=== PATIENT | male | born 1960 | race African-American/Black ===

== ENCOUNTER 2017-04-05 13:43 | Emergency (ER) | payer MEDICAID ==
[~2017-04-05] VITALS: Ht 188 cm; Wt 66.2 kg
[~2017-04-05 13:43] MED LIST: GLIP-115 PO; OMEP20CA74 PO; ONDA8TAB6 PO; PERCOT PO; PRO10T GT; PRO10T PO; TRAM50TA2 PO
[2017-04-05 13:53] VITALS: BP 149/92
== END 2017-04-05 16:07 | disposition home or self-care (01) ==
LOC: ER 13:43 → EDBD 13:43 → ER 16:07
DX: M79.662 Pain in left lower leg (principal); J45.909 Unspecified asthma, uncomplicated; Z79.899 Other long term (current) drug therapy
CPT/HCPCS: 93971

== ENCOUNTER 2017-04-06 06:16 | Inpatient (IN) | payer MEDICAID ==
[2017-04-06] VITALS (30 sets, daily range): BP systolic 113–143; BP diastolic 72–92
[~2017-04-06] VITALS: Ht 182.9 cm; Wt 67.1 kg
[2017-04-06 06:36] LABS: Allen Test Modified; Base Excess 6.8 mmol/L (-2.0-2.0); Blood 02Sat 95.5 % (96-100); Blood COHb 1.6 % (0.5-1.5); Blood MetHb 0.1 % (0.0-1.5); HHb 4.4 % (0.0-5.0); MODE NASAL CANNULA; O2Hb 93.9 % (94.0-97.0); PCO2 37.6 mmHg (35.0-45.0); PCO2(T) 37.6 mmHg (35.0-45.0); PO2 79.6 mmHg (80.0-100.0); PO2(T) 79.6 mmHg (80.0-100.0); Sample Type Arterial
[2017-04-06] MEDS ORDERED: SODIUM CHLORIDE 0.9% 1,000 ML IV ONE (06:57)
[2017-04-06] MEDS ORDERED: MORPHINE SULF INJ 2 MG/ML SYRINGE 1ML IV ONE (07:00)
[2017-04-06] MEDS ORDERED: ONDANSETRON HCL 4 MG/2 ML VIAL IV ONE (07:00)
[2017-04-06 07:16] LABS: Urine Blood 2+ /uL (Negative); Urine Color Yellow (Yellow); Urine Glucose 3+ mg/dL (Normal); Urine Ketone Negative (Negative); Urine Nitrite Negative (Negative); Urine RBC 1 /hpf (0 - 3); Urine Squamous Epithelial Cell FEW /hpf (<5); Urine Urobilinogen >12.0 mg/dL (Negative)
[2017-04-06 07:38] LABS: Urine Bilirubin Negative (Negative)
[2017-04-06 07:53] LABS: Hematocrit 32.3 % (41.0-53.0); Hemoglobin 10.9 g/dL (13.5-17.5); Mean Corpuscular Hemoglobin 30.1 pg (28.0-32.0); Mean Corpuscular Hgb Conc. 33.8 g/dL (32.0-36.0); Mean Platelet Volume 8.6 fL (6.9-10.8); Platelet Count (auto) 165 10^3/uL (140-450); White Blood Cell 16.6 10^3/uL (4.4-10.8)
[2017-04-06 07:56] LABS: Metamyelocytes % 0; Myelocytes % 0; Promyelocytes % 0; Reactive Lymphocytes 0
[2017-04-06 08:09] LABS: BUN/Creatinine Ratio 33.7; Bilirubin, Total 3.5 mg/dL (0.2-1.0); Calcium 9.2 mg/dL (8.5-10.1); Magnesium 2.3 mg/dL (1.6-2.6); Potassium 4.3 mmol/L (3.5-5.1); Total Protein 7.1 g/dL (6.4-8.2)
[2017-04-06 08:36] LABS: Platelet Estimate Adequate
[2017-04-06] MEDS ORDERED: HEPARIN SODIUM (PORCINE) 5000 UNITS/ML 1ML VIAL IV ONE (11:15)
[2017-04-06] MEDS ORDERED: LACTULOSE 20Gm/30ML SOLN PO PRN (11:15)
[2017-04-06] MEDS ORDERED: ALBUTEROL SULF 2.5 MG/0.5ML(0.5%) NEB SOLN NEB PRN (11:15)
[2017-04-06] MEDS ORDERED: NITROGLYCERIN 0.4 MG SL TAB SL PRN (11:15)
[2017-04-06] MEDS ORDERED: LORazepam 2MG/ML-1ML VIAL IV PRN (11:15)
[2017-04-06] MEDS ORDERED: TEMAZEPAM 15 MG CAP PO PRN (11:15)
[2017-04-06] MEDS ORDERED: DEXTROSE (50%) 50ML SYRG IV PRN (11:15)
[2017-04-06] MEDS ORDERED: MORPHINE SULF INJ 2 MG/ML SYRINGE 1ML IV PRN (11:15)
[2017-04-06] MEDS ORDERED: ACETAMINOPHEN 500 MG TAB PO PRN (11:15)
[2017-04-06] MEDS ORDERED: HEPARIN 1,000 UNITS/ml 1ML VIAL ONE (11:29)
[2017-04-06] MEDS ORDERED: HEPARIN SODIUM (PORCINE) 5000 UNITS/ML 1ML VIAL ONE (11:29)
[2017-04-06] MEDS: HEPARIN DRIP/D5W 100UNITS/ML 250 ML IV SCH (11:45)
[2017-04-06 11:46] LABS: Hematocrit 30.2 % (41.0-53.0); Hemoglobin 10.1 g/dL (13.5-17.5)
[2017-04-06] MEDS: SODIUM CHLORIDE 0.9% 1,000 ML IV SCH ×2 (11:46→19:05)
[2017-04-06 11:47] LABS: Amylase 19 U/L (25-115)
[2017-04-06 11:48] LABS: INR 1.12 (0.9-1.15); Partial Thromboplastin Time 26.6 sec (22.64-33.71); Prothrombin Time 12.2 sec (9.37-12.3)
[2017-04-06] MEDS: IPRATROPIUM BROM 0.5 MG/2.5ML INH SOL NEB SCH ×2 (12:00→18:33)
[2017-04-06] MEDS: ALBUTEROL SULF 2.5 MG/0.5ML(0.5%) NEB SOLN NEB SCH ×2 (12:00→18:33)
[2017-04-06] MEDS ORDERED: [UNRECOGNIZED DRUG - OTHER] IV SCH (12:00)
[2017-04-06] MEDS: PANTOPRAZOLE 40 MG/10 ML VIAL IV SCH (12:10)
[2017-04-06] MEDS: NITROGLYCERIN 0.2MG/HR TOPICAL PATCH TD SCH (12:11)
[2017-04-06] MEDS: LEVOFLOXACIN 500MG 100 ML IV SCH (12:14)
[2017-04-06] MEDS: ASPirin 81 mg TAB PO SCH (12:16)
[2017-04-06] MEDS: METOPROLOL TARTRATE 25 MG TAB PO SCH ×2 (12:17→22:29)
[2017-04-06] MEDS: InsuLIN REG 1unit/0.01ml Soln (100units/ml) SC SCH ×3 (12:26→20:22)
[2017-04-06] MEDS: ACCU-CHEK COMFORT CURVE STRIP VI SCH ×3 (12:26→20:22)
[2017-04-06 15:43] LABS: Hematocrit 28.3 % (41.0-53.0); Hemoglobin 9.4 g/dL (13.5-17.5)
[2017-04-06 18:18] LABS: INR 1.24 (0.9-1.15); Prothrombin Time 13.5 sec (9.37-12.3)
[2017-04-07] VITALS (66 sets, daily range): BP systolic 105–174; BP diastolic 56–101
[2017-04-07] MEDS: InsuLIN REG 1unit/0.01ml Soln (100units/ml) SC SCH ×6 (00:18→20:00)
[2017-04-07] MEDS: ACCU-CHEK COMFORT CURVE STRIP VI SCH ×6 (00:18→20:00)
[2017-04-07] MEDS: ALBUTEROL SULF 2.5 MG/0.5ML(0.5%) NEB SOLN NEB SCH ×4 (00:22→18:45)
[2017-04-07] MEDS: IPRATROPIUM BROM 0.5 MG/2.5ML INH SOL NEB SCH ×4 (00:22→18:45)
[2017-04-07] MEDS: PROMETHAZINE HCL 25 MG/ML 1ML IV PRN (00:49)
[2017-04-07] MEDS: MORPHINE SULF INJ 2 MG/ML SYRINGE 1ML IV PRN ×4 (00:49→23:51)
[2017-04-07 01:34] LABS: Hematocrit 26.7 % (41.0-53.0); Hemoglobin 9.1 g/dL (13.5-17.5)
[2017-04-07] MEDS: HYDROcodone-ACET 5/325MG TAB PO PRN ×2 (03:01→20:35)
[2017-04-07] MEDS: SODIUM CHLORIDE 0.9% 1,000 ML IV SCH ×4 (03:05→20:00)
[2017-04-07 04:43] LABS: Basophils # (auto) 0.1 uL; Basophils % (auto) 0.6 % (0.0-2.0); Eosinophils # (auto) 0 uL; Hemoglobin 8.9 g/dL (13.5-17.5); INR 1.18 (0.9-1.15); Lymphocytes # (auto) 0.9 uL; Lymphocytes % (auto) 5.7 % (10.0-50.0); Mean Corpuscular Hemoglobin 29.2 pg (28.0-32.0); Mean Corpuscular Hgb Conc. 33.1 g/dL (32.0-36.0); Mean Corpuscular Volume 88.1 fL (80.0-100.0); Mean Platelet Volume 9.5 fL (6.9-10.8); Monocytes # (auto) 0.2 uL; Monocytes % (auto) 1.5 % (0.0-12.0); Neutrophils % (auto) 92.2 % (37.0-80.0); Partial Thromboplastin Time 56.7 sec (22.64-33.71); Platelet Count (auto) 145 10^3/uL (140-450); Prothrombin Time 12.9 sec (9.37-12.3); Red Cell Distribution Width 14.5 % (11.8-14.3); White Blood Cell 16.3 10^3/uL (4.4-10.8)
[2017-04-07 05:07] LABS: Albumin 1.7 g/dL (3.4-5.0); BUN/Creatinine Ratio 37.5; Bilirubin, Total 4.2 mg/dL (0.2-1.0); Calcium 8.5 mg/dL (8.5-10.1); Potassium 4.2 mmol/L (3.5-5.1); Total Protein 6.1 g/dL (6.4-8.2)
[2017-04-07] MEDS: HEPARIN DRIP/D5W 100UNITS/ML 250 ML IV SCH (07:53)
[2017-04-07] MEDS ORDERED: MORPHINE SULF INJ 2 MG/ML SYRINGE 1ML IV ONE (08:45)
[2017-04-07 09:38] LABS: INR 1.17 (0.9-1.15); Partial Thromboplastin Time 47.4 sec (22.64-33.71); Prothrombin Time 12.8 sec (9.37-12.3)
[2017-04-07] MEDS: ASPirin 81 mg TAB PO SCH (10:00)
[2017-04-07] MEDS: METOPROLOL TARTRATE 25 MG TAB PO SCH ×2 (10:00→22:50)
[2017-04-07] MEDS: PANTOPRAZOLE 40 MG/10 ML VIAL IV SCH (10:04)
[2017-04-07] MEDS: LEVOFLOXACIN 500MG 100 ML IV SCH (10:04)
[2017-04-07] MEDS: NITROGLYCERIN 0.2MG/HR TOPICAL PATCH TD SCH (10:05)
[2017-04-07 17:55] LABS: INR 1.18 (0.9-1.15); Prothrombin Time 12.9 sec (9.37-12.3)
[2017-04-07] MEDS ORDERED: LORazepam 2MG/ML-1ML VIAL IV PRN (20:00)
[2017-04-08] VITALS: BP 137/89
[2017-04-08] MEDS: ALBUTEROL SULF 2.5 MG/0.5ML(0.5%) NEB SOLN NEB SCH ×4 (00:54→18:52)
[2017-04-08] MEDS: IPRATROPIUM BROM 0.5 MG/2.5ML INH SOL NEB SCH ×4 (00:54→18:52)
[2017-04-08] MEDS: ACCU-CHEK COMFORT CURVE STRIP VI SCH ×5 (01:20→21:54)
[2017-04-08] MEDS: InsuLIN REG 1unit/0.01ml Soln (100units/ml) SC SCH ×5 (01:20→21:53)
[2017-04-08] MEDS: HYDROcodone-ACET 5/325MG TAB PO PRN (02:54)
[2017-04-08 05:08] LABS: Basophils # (auto) 0.1 uL; Basophils % (auto) 1.2 % (0.0-2.0); Eosinophils # (auto) 0 uL; Eosinophils % (auto) 0.1 % (0.0-7.0); Hematocrit 25.2 % (41.0-53.0); Hemoglobin 8.5 g/dL (13.5-17.5); Lymphocytes # (auto) 0.7 uL; Lymphocytes % (auto) 6.8 % (10.0-50.0); Mean Corpuscular Hemoglobin 29.3 pg (28.0-32.0); Mean Corpuscular Hgb Conc. 33.7 g/dL (32.0-36.0); Mean Corpuscular Volume 87.1 fL (80.0-100.0); Mean Platelet Volume 9.6 fL (6.9-10.8); Monocytes # (auto) 0.1 uL; Monocytes % (auto) 1.1 % (0.0-12.0); Neutrophils # (auto) 9.2 uL; Neutrophils % (auto) 90.8 % (37.0-80.0); Platelet Count (auto) 157 10^3/uL (140-450); Red Cell Distribution Width 14.8 % (11.8-14.3); White Blood Cell 10.2 10^3/uL (4.4-10.8)
[2017-04-08] MEDS: MORPHINE SULF INJ 2 MG/ML SYRINGE 1ML IV PRN ×4 (05:23→21:54)
[2017-04-08 08:00] VITALS: BP 147/100
[2017-04-08 08:14] LABS: BUN/Creatinine Ratio 37.7; Calcium 8.4 mg/dL (8.5-10.1); Potassium 3.8 mmol/L (3.5-5.1)
[2017-04-08 08:48] LABS: INR 1.2 (0.9-1.15); Prothrombin Time 13.1 sec (9.37-12.3)
[2017-04-08 08:55] LABS: Partial Thromboplastin Time 94.8 sec (22.64-33.71)
[2017-04-08] MEDS: NITROGLYCERIN 0.2MG/HR TOPICAL PATCH TD SCH (10:00)
[2017-04-08] MEDS: PANTOPRAZOLE 40 MG/10 ML VIAL IV SCH (10:06)
[2017-04-08] MEDS: METOPROLOL TARTRATE 25 MG TAB PO SCH ×2 (10:06→21:53)
[2017-04-08] MEDS: ASPirin 81 mg TAB PO SCH (10:07)
[2017-04-08] MEDS: LEVOFLOXACIN 500MG 100 ML IV SCH (10:07)
[2017-04-08] MEDS: HEPARIN DRIP/D5W 100UNITS/ML 250 ML IV SCH ×2 (10:25→21:48)
[2017-04-08] MEDS ORDERED: DILT30TA24 PO (11:48)
[2017-04-08] MEDS ORDERED: MORP60TA25 PO (11:48)
[2017-04-08] MEDS ORDERED: METF-370 PO (11:48)
[2017-04-08] MEDS: Boost Glucose Control 8 Ounces PO SCH ×2 (11:53→17:05)
[2017-04-08] MEDS: SODIUM CHLORIDE 0.9% 1,000 ML IV SCH ×2 (11:53→20:00)
[2017-04-08 11:56] VITALS: BP 133/83
[2017-04-08] MEDS: PROMETHAZINE HCL 25 MG/ML 1ML IV PRN ×2 (13:20→20:06)
[2017-04-08] MEDS ORDERED: DEXTROSE (50%) 50ML SYRG IV PRN (13:45)
[2017-04-08 15:47] VITALS: BP 140/82
[2017-04-08] MEDS ORDERED: ACCU-CHEK COMFORT CURVE STRIP VI SCH (17:00)
[2017-04-08] MEDS ORDERED: InsuLIN REG 1unit/0.01ml Soln (100units/ml) SC SCH ×2 (17:00→22:00)
[2017-04-08 17:02] LABS: INR 1.13 (0.9-1.15); Partial Thromboplastin Time 54.2 sec (22.64-33.71); Prothrombin Time 12.3 sec (9.37-12.3)
[2017-04-08] MEDS: PRO-STAT 64 30ML PO SCH (17:06)
[2017-04-08 19:53] VITALS: BP 151/87
[2017-04-08 23:31] LABS: INR 1.14 (0.9-1.15); Prothrombin Time 12.4 sec (9.37-12.3)
[2017-04-09 00:01] VITALS: BP 121/73
[2017-04-09] MEDS: IPRATROPIUM BROM 0.5 MG/2.5ML INH SOL NEB SCH ×4 (00:19→19:49)
[2017-04-09] MEDS: ALBUTEROL SULF 2.5 MG/0.5ML(0.5%) NEB SOLN NEB SCH ×4 (00:19→19:49)
[2017-04-09] MEDS: PROMETHAZINE HCL 25 MG/ML 1ML IV PRN (02:21)
[2017-04-09] MEDS: MORPHINE SULF INJ 2 MG/ML SYRINGE 1ML IV PRN ×3 (04:27→21:20)
[2017-04-09 05:15] LABS: Hematocrit 26.3 % (41.0-53.0); Hemoglobin 8.9 g/dL (13.5-17.5)
[2017-04-09 05:29] LABS: INR 1.14 (0.9-1.15); Partial Thromboplastin Time 53.4 sec (22.64-33.71); Prothrombin Time 12.4 sec (9.37-12.3)
[2017-04-09 06:21] LABS: BUN/Creatinine Ratio 31.3; Calcium 8.5 mg/dL (8.5-10.1); Potassium 3.7 mmol/L (3.5-5.1)
[2017-04-09] MEDS: InsuLIN REG 1unit/0.01ml Soln (100units/ml) SC SCH ×4 (06:30→22:00)
[2017-04-09] MEDS: ACCU-CHEK COMFORT CURVE STRIP VI SCH ×4 (06:30→22:00)
[2017-04-09 08:00] VITALS: BP 150/87
[2017-04-09] MEDS: PRO-STAT 64 30ML PO SCH ×2 (08:00→18:00)
[2017-04-09] MEDS: Boost Glucose Control 8 Ounces PO SCH ×3 (08:00→18:00)
[2017-04-09] MEDS: PANTOPRAZOLE 40 MG/10 ML VIAL IV SCH (10:01)
[2017-04-09 10:08] VITALS: BP 121/53
[2017-04-09 12:00] VITALS: BP 155/90
[2017-04-09 15:59] VITALS: BP 161/79
[2017-04-09] MEDS: ASPirin 81 mg TAB PO SCH (16:30)
[2017-04-09] MEDS: METOPROLOL TARTRATE 25 MG TAB PO SCH ×2 (16:30→22:43)
[2017-04-09] MEDS: SODIUM CHLORIDE 0.9% 1,000 ML IV SCH (17:30)
[2017-04-09 20:00] VITALS: BP 119/67
[2017-04-09] MEDS: HEPARIN DRIP/D5W 100UNITS/ML 250 ML IV SCH (21:38)
[2017-04-10] VITALS: BP 119/67
[2017-04-10] MEDS: IPRATROPIUM BROM 0.5 MG/2.5ML INH SOL NEB SCH ×4 (00:58→18:56)
[2017-04-10] MEDS: ALBUTEROL SULF 2.5 MG/0.5ML(0.5%) NEB SOLN NEB SCH ×4 (00:58→18:56)
[2017-04-10 03:49] VITALS: BP 145/90
[2017-04-10 05:20] LABS: Basophils # (auto) 0 uL; Basophils % (auto) 0.3 % (0.0-2.0); Eosinophils # (auto) 0 uL; Eosinophils % (auto) 0.3 % (0.0-7.0); Hematocrit 28.3 % (41.0-53.0); Hemoglobin 9.6 g/dL (13.5-17.5); Lymphocytes # (auto) 0.6 uL; Lymphocytes % (auto) 6.9 % (10.0-50.0); Mean Corpuscular Hemoglobin 29.2 pg (28.0-32.0); Mean Corpuscular Hgb Conc. 33.8 g/dL (32.0-36.0); Mean Corpuscular Volume 86.5 fL (80.0-100.0); Mean Platelet Volume 9.5 fL (6.9-10.8); Monocytes # (auto) 0.2 uL; Monocytes % (auto) 2.1 % (0.0-12.0); Neutrophils # (auto) 7.4 uL; Neutrophils % (auto) 90.4 % (37.0-80.0); Nucleated Red Blood Cells % 0.1 %; Platelet Count (auto) 131 10^3/uL (140-450); Red Cell Distribution Width 14.9 % (11.8-14.3); White Blood Cell 8.2 10^3/uL (4.4-10.8)
[2017-04-10 05:31] LABS: INR 1.16 (0.9-1.15); Partial Thromboplastin Time 45.5 sec (22.64-33.71); Prothrombin Time 12.7 sec (9.37-12.3)
[2017-04-10] MEDS: SODIUM CHLORIDE 0.9% 1,000 ML IV SCH (05:39)
[2017-04-10] MEDS ORDERED: HEPARIN DRIP/D5W 100UNITS/ML 250 ML IV SCH (06:00)
[2017-04-10] MEDS: ACCU-CHEK COMFORT CURVE STRIP VI SCH ×4 (07:14→22:00)
[2017-04-10] MEDS: InsuLIN REG 1unit/0.01ml Soln (100units/ml) SC SCH ×4 (07:15→22:53)
[2017-04-10 08:00] VITALS: BP 133/86
[2017-04-10] MEDS: Boost Glucose Control 8 Ounces PO SCH ×3 (09:53→19:14)
[2017-04-10] MEDS: PANTOPRAZOLE 40 MG/10 ML VIAL IV SCH (10:00)
[2017-04-10] MEDS: HYDROcodone-ACET 5/325MG TAB PO PRN (10:03)
[2017-04-10] MEDS: ASPirin 81 mg TAB PO SCH (10:03)
[2017-04-10] MEDS: METOPROLOL TARTRATE 25 MG TAB PO SCH ×2 (10:06→21:33)
[2017-04-10 12:00] VITALS: BP 129/81
[2017-04-10] MEDS: PRO-STAT 64 30ML PO SCH ×2 (12:18→19:14)
[2017-04-10 16:00] VITALS: BP 111/65
[2017-04-10] MEDS: MORPHINE SULF INJ 2 MG/ML SYRINGE 1ML IV PRN ×2 (17:08→23:17)
[2017-04-10 20:00] VITALS: BP 128/76
[2017-04-10] MEDS: ATORVASTATIN 20 MG TAB PO SCH (21:33)
[2017-04-11] VITALS: BP 119/76
[2017-04-11] MEDS: IPRATROPIUM BROM 0.5 MG/2.5ML INH SOL NEB SCH ×4 (00:27→18:50)
[2017-04-11] MEDS: ALBUTEROL SULF 2.5 MG/0.5ML(0.5%) NEB SOLN NEB SCH ×4 (00:27→18:50)
[2017-04-11] MEDS: MORPHINE SULF INJ 2 MG/ML SYRINGE 1ML IV PRN (03:40)
[2017-04-11 04:00] VITALS: BP 100/51
[2017-04-11 05:10] LABS: Basophils # (auto) 0 uL; Basophils % (auto) 0.1 % (0.0-2.0); Eosinophils # (auto) 0.1 uL; Hematocrit 22.8 % (41.0-53.0); Hemoglobin 7.8 g/dL (13.5-17.5); Lymphocytes # (auto) 0.7 uL; Mean Corpuscular Hemoglobin 29.7 pg (28.0-32.0); Mean Corpuscular Hgb Conc. 34.2 g/dL (32.0-36.0); Mean Corpuscular Volume 86.9 fL (80.0-100.0); Mean Platelet Volume 9.5 fL (6.9-10.8); Monocytes # (auto) 0.5 uL; Monocytes % (auto) 8.7 % (0.0-12.0); Neutrophils # (auto) 4.9 uL; Neutrophils % (auto) 79.2 % (37.0-80.0); Nucleated Red Blood Cells % 0.2 %; Platelet Count (auto) 88 10^3/uL (140-450); White Blood Cell 6.2 10^3/uL (4.4-10.8)
[2017-04-11 05:22] LABS: INR 1.22 (0.9-1.15); Partial Thromboplastin Time 30.9 sec (22.64-33.71); Prothrombin Time 13.3 sec (9.37-12.3)
[2017-04-11] MEDS: ACCU-CHEK COMFORT CURVE STRIP VI SCH ×4 (06:29→22:09)
[2017-04-11] MEDS: InsuLIN REG 1unit/0.01ml Soln (100units/ml) SC SCH ×4 (06:29→22:10)
[2017-04-11 08:00] VITALS: BP 122/72
[2017-04-11] MEDS: PRO-STAT 64 30ML PO SCH ×2 (10:07→19:21)
[2017-04-11] MEDS: Boost Glucose Control 8 Ounces PO SCH ×3 (10:07→19:20)
[2017-04-11] MEDS: ASPirin 81 mg TAB PO SCH (10:21)
[2017-04-11] MEDS: PANTOPRAZOLE 40 MG/10 ML VIAL IV SCH (10:21)
[2017-04-11] MEDS: METOPROLOL TARTRATE 25 MG TAB PO SCH ×2 (10:21→22:19)
[2017-04-11 11:59] VITALS: BP 123/78
[2017-04-11 15:44] VITALS: BP 101/58
[2017-04-11 19:52] VITALS: BP 146/90
[2017-04-11] MEDS: ATORVASTATIN 20 MG TAB PO SCH (22:15)
[2017-04-11] MEDS: HYDROcodone-ACET 5/325MG TAB PO PRN (23:50)
[2017-04-12] VITALS: BP 125/75
[2017-04-12 04:09] VITALS: BP 127/74
[2017-04-12] MEDS: IPRATROPIUM BROM 0.5 MG/2.5ML INH SOL NEB SCH ×5 (06:04→18:43)
[2017-04-12] MEDS: ALBUTEROL SULF 2.5 MG/0.5ML(0.5%) NEB SOLN NEB SCH ×5 (06:04→18:43)
[2017-04-12] MEDS: InsuLIN REG 1unit/0.01ml Soln (100units/ml) SC SCH ×4 (07:00→22:51)
[2017-04-12] MEDS: ACCU-CHEK COMFORT CURVE STRIP VI SCH ×4 (07:01→22:50)
[2017-04-12] MEDS: MORPHINE SULF INJ 2 MG/ML SYRINGE 1ML IV PRN (07:06)
[2017-04-12 08:00] VITALS: BP 124/81
[2017-04-12] MEDS: PRO-STAT 64 30ML PO SCH ×2 (08:00→17:32)
[2017-04-12] MEDS: Boost Glucose Control 8 Ounces PO SCH ×3 (08:00→17:32)
[2017-04-12] MEDS: ASPirin 81 mg TAB PO SCH (10:00)
[2017-04-12] MEDS: PANTOPRAZOLE 40 MG/10 ML VIAL IV SCH (10:34)
[2017-04-12] MEDS: METOPROLOL TARTRATE 25 MG TAB PO SCH ×2 (10:35→22:42)
[2017-04-12] MEDS: SODIUM CHLORIDE 0.9% 1,000 ML IV SCH ×3 (11:44→16:20)
[2017-04-12 20:00] VITALS: BP 105/75
[2017-04-12] MEDS: ATORVASTATIN 20 MG TAB PO SCH (22:42)
[2017-04-13 05:00] VITALS: BP 130/77
[2017-04-13] MEDS: ACCU-CHEK COMFORT CURVE STRIP VI SCH ×3 (06:39→17:18)
[2017-04-13] MEDS: IPRATROPIUM BROM 0.5 MG/2.5ML INH SOL NEB SCH ×4 (07:10→19:50)
[2017-04-13] MEDS: ALBUTEROL SULF 2.5 MG/0.5ML(0.5%) NEB SOLN NEB SCH ×4 (07:10→19:50)
[2017-04-13] MEDS: SODIUM CHLORIDE 0.9% 1,000 ML IV SCH (08:00)
[2017-04-13 09:00] VITALS: BP 133/69
[2017-04-13] MEDS: ASPirin 81 mg TAB PO SCH (09:48)
[2017-04-13] MEDS: METOPROLOL TARTRATE 25 MG TAB PO SCH ×2 (09:49→22:55)
[2017-04-13] MEDS: PRO-STAT 64 30ML PO SCH ×2 (09:51→18:45)
[2017-04-13] MEDS: PANTOPRAZOLE 40 MG/10 ML VIAL IV SCH (09:51)
[2017-04-13] MEDS: Boost Glucose Control 8 Ounces PO SCH ×3 (09:52→18:45)
[2017-04-13] MEDS: HYDROcodone-ACET 5/325MG TAB PO PRN ×3 (10:27→14:50)
[2017-04-13] MEDS: InsuLIN REG 1unit/0.01ml Soln (100units/ml) SC SCH ×2 (11:30→17:18)
[2017-04-13 13:00] VITALS: BP 117/67
[2017-04-13 17:00] VITALS: BP 122/73
[2017-04-13 20:00] VITALS: BP 100/67
[2017-04-13 22:00] VITALS: BP 100/67
[2017-04-13] MEDS: ATORVASTATIN 20 MG TAB PO SCH ×2 (22:00→22:52)
[2017-04-14] MEDS: InsuLIN REG 1unit/0.01ml Soln (100units/ml) SC SCH ×6 (00:05→21:52)
[2017-04-14] MEDS: ACCU-CHEK COMFORT CURVE STRIP VI SCH ×5 (00:05→21:51)
[2017-04-14] MEDS: HYDROcodone-ACET 5/325MG TAB PO PRN ×2 (01:55→09:06)
[2017-04-14] MEDS: SODIUM CHLORIDE 0.9% 1,000 ML IV SCH (04:00)
[2017-04-14] MEDS: MORPHINE SULF INJ 2 MG/ML SYRINGE 1ML IV PRN ×3 (04:05→20:04)
[2017-04-14 06:22] VITALS: BP 128/81
[2017-04-14] MEDS: IPRATROPIUM BROM 0.5 MG/2.5ML INH SOL NEB SCH ×4 (07:10→18:31)
[2017-04-14] MEDS: ALBUTEROL SULF 2.5 MG/0.5ML(0.5%) NEB SOLN NEB SCH ×4 (07:10→18:31)
[2017-04-14] MEDS: PRO-STAT 64 30ML PO SCH ×2 (08:00→18:09)
[2017-04-14] MEDS: Boost Glucose Control 8 Ounces PO SCH ×3 (08:00→18:09)
[2017-04-14 09:00] VITALS: BP 120/70
[2017-04-14] MEDS: PANTOPRAZOLE 40 MG/10 ML VIAL IV SCH (09:06)
[2017-04-14] MEDS: ASPirin 81 mg TAB PO SCH (09:06)
[2017-04-14] MEDS: METOPROLOL TARTRATE 25 MG TAB PO SCH ×2 (09:18→21:51)
[2017-04-14 13:00] VITALS: BP 109/69
[2017-04-14 17:00] VITALS: BP 117/71
[2017-04-14 21:35] VITALS: BP 121/73
[2017-04-14] MEDS: ATORVASTATIN 20 MG TAB PO SCH (21:51)
[2017-04-15] VITALS (7 sets, daily range): BP systolic 113–134; BP diastolic 73–77
[2017-04-15] MEDS: IPRATROPIUM BROM 0.5 MG/2.5ML INH SOL NEB SCH ×4 (00:04→17:54)
[2017-04-15] MEDS: ALBUTEROL SULF 2.5 MG/0.5ML(0.5%) NEB SOLN NEB SCH ×4 (00:04→17:54)
[2017-04-15] MEDS: MORPHINE SULF INJ 2 MG/ML SYRINGE 1ML IV PRN ×4 (02:44→16:57)
[2017-04-15] MEDS: ACCU-CHEK COMFORT CURVE STRIP VI SCH ×3 (06:13→16:57)
[2017-04-15] MEDS: InsuLIN REG 1unit/0.01ml Soln (100units/ml) SC SCH ×3 (06:13→16:57)
[2017-04-15] MEDS: Boost Glucose Control 8 Ounces PO SCH ×3 (11:02→17:44)
[2017-04-15] MEDS: PRO-STAT 64 30ML PO SCH ×2 (11:02→17:44)
[2017-04-15] MEDS: PANTOPRAZOLE 40 MG/10 ML VIAL IV SCH (11:02)
[2017-04-15] MEDS: ASPirin 81 mg TAB PO SCH (11:03)
[2017-04-15] MEDS: METOPROLOL TARTRATE 25 MG TAB PO SCH (11:03)
[2017-04-15] MEDS: SODIUM CHLORIDE 0.9% 1,000 ML IV SCH ×2 (20:00)
== END 2017-04-15 21:30 | disposition hospice, home (50) | DRG 45 ==
LOC: EDBD 06:16 → ER 06:22 → TELE 06:23 → ICU WEST 13:02 → DOU IN ICU 04-07 22:12 → TELE-WESTW 04-12 12:01 → WEST WING 04-13 05:25
PROVIDERS: ADMIT Internal Medicine; ATTEND Internal Medicine
DX: I63.512 Cerebral infarction due to unspecified occlusion or stenosis of left middle cerebral artery (principal); I21.4 Non-ST elevation (NSTEMI) myocardial infarction; E43 Unspecified severe protein-calorie malnutrition; G93.41 Metabolic encephalopathy; C78.00 Secondary malignant neoplasm of unspecified lung; C25.9 Malignant neoplasm of pancreas, unspecified; E86.9 Volume depletion, unspecified; C78.7 Secondary malignant neoplasm of liver and intrahepatic bile duct; C79.31 Secondary malignant neoplasm of brain; E87.1 Hypo-osmolality and hyponatremia; Z51.5 Encounter for palliative care; C79.51 Secondary malignant neoplasm of bone; R47.01 Aphasia; G89.3 Neoplasm related pain (acute) (chronic); M54.9 Dorsalgia, unspecified; D63.8 Anemia in other chronic diseases classified elsewhere; D72.823 Leukemoid reaction; Z66 Do not resuscitate; E11.51 Type 2 diabetes mellitus with diabetic peripheral angiopathy without gangrene; E11.65 Type 2 diabetes mellitus with hyperglycemia; F11.10 Opioid abuse, uncomplicated; F12.10 Cannabis abuse, uncomplicated; K21.9 Gastro-esophageal reflux disease without esophagitis; Z82.5 Family history of asthma and other chronic lower respiratory diseases; Z79.899 Other long term (current) drug therapy; Z79.82 Long term (current) use of aspirin; Z68.20 Body mass index [BMI] 20.0-20.9, adult
CPT/HCPCS: 36415; 51702; 70450; 71010; 74176; 80048; 80053; 80061; 80307; 81001; 82140; 82150; 82550; 82962; 83036; 83605; 83690; 83735; 84439; 84443; 84481; 84484; 85007; 85014; 85018; 85025; 85027; 85045; 85610; 85652; 85730; 86141; 86850; 86900; 86901; 87040; 87081; 87086; 92610; 93005; 93306; 93926; 94640; 94761; 95819; 96361; 96374; 96375; C9113; J1815; J1956; J2405